=== PATIENT | male | born 1975 | race African-American/Black ===

== ENCOUNTER 2020-06-17 15:50 | Outpatient (REF) | payer OTHER, SELFPAY | END 2020-06-17 15:51 | disposition home or self-care (01) | LOC: HO.LAB 15:50 | PROVIDERS: Visit Provider Internal Medicine | DX: Z20.822 Contact with and (suspected) exposure to COVID-19 (principal) | CPT/HCPCS: 36415; C9803; U0003; U0005 ==

== ENCOUNTER 2020-06-30 15:03 | Outpatient (REF) | payer OTHER, SELFPAY | END 2020-06-30 15:04 | disposition home or self-care (01) | LOC: HO.LAB 15:03 | PROVIDERS: Visit Provider Internal Medicine | DX: Z20.822 Contact with and (suspected) exposure to COVID-19 (principal) | CPT/HCPCS: 36415; C9803; U0003; U0005 ==

== ENCOUNTER 2021-08-01 09:51 | Emergency (ER) | payer MEDICAID, SELFPAY ==
--- NOTE | ~2021-08-01 | US_ITS ---
EXAMINATION: US VENOUS WITH DOPPLER UPPER EXTREMITY, RIGHT CLINICAL INFORMATION: Pain and swelling COMPARISON: None TECHNIQUE: Ultrasound of the upper extremity is performed using compression sonography and color and pulse Doppler flow with assessment of augmentation of flow. There is also imaging and Doppler assessment of the jugular and subclavian veins. Spectral analysis with color-flow imaging is performed. FINDINGS: The right internal jugular, subclavian, axillary, brachial, basilic and cephalic veins are patent. The radial and ulnar veins in the forearm are patent. There is no evidence of DVT. US/US venous duplex UE RT IMPRESSION: No DVT demonstrated in the right upper
[2021-08-01 10:17] VITALS: BP 130/89; PULSE 61; RESP 18; TEMP 36.1; O2SAT 97; BMI 24.8
--- NOTE | 2021-08-01 10:54 | ED_ITS ---
HPI - Extremity Problem General Chief complaint: Extremity Injury, Upper Stated complaint: arm swelling Time Seen by Provider: 08/01/21 10:42 Source: patient Mode of arrival: ambulatory Limitations: no limitations History of Present Illness MD Complaint: extremity pain and extremity swelling Onset (ago): day(s) (2) Pain Consistency: constant Location: right and upper extremity (forearm) Quality: aching and dull Relieving factors: immobilization Exacerbating factors: palpation Associated symptoms: other (was more swollen but has improved) Context: other (denies trauma states he woke up like this, has had prior significant soft tissue injury in the past after arm went through glass, went to urgent care sent here for possible DVT) Related Data Previous Rx's Medication Instructions Recorded cyclobenzaprine 10 mg tablet 10 mg PO TID PRN #14 tab 08/01/21 prednisone 20 mg tablet 40 mg PO DAILY 5 Days #10 tab 08/01/21 Allergies Allergy/AdvReac Type Severity Reaction Status Date / Time No Known Allergies Allergy Verified 08/01/21 10:16 Review of Systems Review of Systems: Constitutional : No Fever, No Chills ENT/Mouth : No Ear Pain, No Hoarseness, No sore throat Eyes: No Eye Pain, No Swelling, No Redness, No Foreign Body Cardiovascular : No Chest Pain, No SOB Respiratory : No Cough, No Dyspnea Gastrointestinal : No Nausea, No Vomiting, No Diarrhea, No abdominal Pain Genitourinary : No Dysuria, No Hematuria Musculoskeletal : positive joint pain, No Myalgias, No Joint Swelling, pos arm pain Skin : No Skin lacerations, No rash Neuro : No Weakness, No Numbness, No Loss of Consciousness, No Dizziness, No Headache PMFSH Past Medical History Attestation statement: The following information was validated with the patient. Medical History No pertinent past medical history Social History Social History (Updated 08/01/21 @ 11:12 by Hollie Leonard DO) Patient Tobacco Use Status: Never used Tobacco Advance Directives: No Advance Directives Information Provided: No Physical Exam Vital Signs: Vital Signs: Last Vital Signs Temp 97.6 F 08/01/21 10:58 Pulse 61 08/01/21 10:58 Resp 18 08/01/21 10:58 BP 130/89 08/01/21 10:58 Pulse Ox 97 04/26/22 10:58 BMI result Body Mass Index 24.8 Appearance: Alert. Oriented X3. No acute distress. Eyes: Pupils equal, round and reactive to light. ENT: Pharynx normal. Neck: Normal inspection. Neck supple. CVS: Normal heart rate and rhythm. Pulses normal. Respiratory: No respiratory distress. Breath sounds normal. Abdomen: Soft and non-tender. Skin: Skin warm and dry. Normal skin color. Normal skin turgor. Extremities: No lower extremity edema. 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 No motor deficit. No sensory deficit. Course Course Course Narrative: no DVT seen stable for DC MDM - Extremity (Nontraumatic) MDM Narrative Medical decision making narrative: 46 yo male no PMH has had significant soft tissue injury in the past to RUE comes in with 2 days of R arm pain and swelling after waking up with it - good strenght and pulses no signs of infection but swelling near medial condyle - at this time has full ROM no trauma reported no signs of infection. Will obtain DVT study possible tendonitis. Discharge Plan Discharge Clinical Impression: Forearm tendonitis Patient Disposition: Home, Self-Care Instructions: Tendinitis (ED) Additional Instructions: return to ED for any worsening symptoms or concerns no blood clot seen on exam Prescriptions: New cyclobenzaprine 10 mg tablet 10 mg PO TID PRN (Reason: muscle spasm) Qty: 14 0RF prednisone 20 mg tablet 40 mg PO DAILY 5 Days Qty: 10 0RF Referrals: Physician,Unknown J [Primary Care Provider] - 2 days (if not better) Stand Alone Forms: Work/School Release
[2021-08-01 10:58] VITALS: BP 130/89; PULSE 61; RESP 18; TEMP 36.4; O2SAT 97
--- NOTE | 2021-08-01 12:13 | PC.NURSE ---
Bedside ultrasound at this time
[2021-08-01 13:03] VITALS: BP 97/44; PULSE 62; RESP 14; O2SAT 96
[2021-08-01] MEDS: Ibuprofen 600 MG TABLET PO (13:37)
== END 2021-08-01 13:41 | disposition home or self-care (01) ==
PROVIDERS: Emergency Provider Emergency Medicine
DX: M77.8 Other enthesopathies, not elsewhere classified (principal); M79.601 Pain in right arm
CPT/HCPCS: 93971; 99284